=== PATIENT | female | born 1970 | race Caucasian/White ===

== ENCOUNTER 2021-04-10 06:52 | Outpatient (CLI) | payer BC ==
[~2021-04-10] VITALS: Ht 167.6 cm; Wt 68.2 kg
[2021-04-10] VITALS (11 sets, daily range): BP systolic 92–110; BP diastolic 55–78
[2021-04-10] MEDS ORDERED: IODIXANOL 320 MG/ML 100 ML VIAL. ONE (07:35)
[2021-04-10 07:43] LABS: CALCIUM 8.4 mg/dL (8.5-10.1); CREATININE 0.7 mg/dL (0.6-1.0); GFR 88.2; HEMATOCRIT 40.5 % (36.0-47.0); HEMOGLOBIN 13.5 g/dL (12.0-15.5); POTASSIUM 3.7 mmol/L (3.5-5.1); RED BLOOD COUNT 4.66 x10^6/uL (3.50-5.40); RED CELL DISTRIBUTION WIDTH 14.1 % (11.5-14.5); WHITE BLOOD COUNT 6.3 x10^3/uL (4.0-11.0)
[2021-04-10] MEDS ORDERED: NAPR-514 PO (08:22)
[2021-04-10] MEDS ORDERED: LIDOCAINE 1% PF 2 ML VIAL. ONE (08:29)
[2021-04-10] MEDS ORDERED: HEPARIN for IV BOLUS 10,000 UNIT/10 ML VIAL. ONE (08:30)
[2021-04-10] MEDS ORDERED: VERAPAMIL 5 MG/2 ML VIAL. ONE (08:30)
[2021-04-10] MEDS ORDERED: fentaNYL PF VIAL 100 MCG/2 ML VIAL ONE (08:30)
[2021-04-10] MEDS ORDERED: MIDAZOLAM HCL/PF 2 MG/2 ML VIAL. ONE ×2 (08:30→08:54)
[2021-04-10] MEDS ORDERED: NITROGLYCERIN 200 MCG/2 ML SYRINGE FOR CATH/VASC LAB. ONE (08:30)
[2021-04-10] MEDS ORDERED: LIDOCAINE 1% PF 2 ML VIAL. INJ ONE (09:00)
[2021-04-10] MEDS ORDERED: VERAPAMIL 5 MG/2 ML VIAL. IART ONE (09:00)
[2021-04-10] MEDS ORDERED: HEPARIN for IV BOLUS 10,000 UNIT/10 ML VIAL. IART ONE (09:00)
[2021-04-10] MEDS ORDERED: MIDAZOLAM HCL/PF 2 MG/2 ML VIAL. IV ONE (09:00)
[2021-04-10] MEDS ORDERED: NITROGLYCERIN 200 MCG/2 ML SYRINGE FOR CATH/VASC LAB. IART ONE (09:00)
[2021-04-10] MEDS ORDERED: fentaNYL PF VIAL 100 MCG/2 ML VIAL IV ONE (09:00)
[2021-04-10] MEDS ORDERED: IODIXANOL 320 MG/ML 100 ML VIAL. IART ONE (09:15)
--- NOTE | 2021-04-10 09:15 | PDOC ---
MODERATE SEDATION ASSESSMENT RISKS/ALTERNATIVES Risks/Alternatives Risks and alternatives of this type of sedation and procedure discussed with: RISK/ALTERNATIVES: Patient H & P ON CHART H & P H & P on chart and reviewed for co-morbid conditions and appropriate labs. H&P ON CHART: Yes STATUS PREG STATUS ASSESSED: No MEDS/ALLERGIES REVIEWED Meds/Allergies Reviewed Medications and Allergies including time and route of recently administered narcotics and sedatives. MEDS/ALLERGIES REVIEWED: Yes ASA RATING ASA RATING: II AIRWAY ASSESSMENT Airway Assessment Airway patency, oral function limitations, presence of caps, crowns, dentures, partials, and ability to extend neck assessed. AIRWAY ASSESSMENT: Yes MALLAMPATI SCORE MALLAMPATI SCORE: II PRE-SEDATION ASSESSMENT PRE-SEDATION ASSESSMENT: Yes ANDREA SEGOVIA MD Apr 10, 2021 09:15
--- NOTE | 2021-04-10 09:21 | CARD ---
MR#: [id number] Date of Study: 04/10/2021 Ordering Physician: ANDREA SEGOVIA, Referring Physician: ANDREA SEGOVIA Tech: Elaine Lester RT(R) APPROVED REPORT Patient StatusOUT-PATIENT Sr. Pricing Analyst: Elaine Lester RT(R) Procedure(s) performed: Aortogram with bilateral lower extremity runoff via right transradial approac h MODERATE SEDATION TIME: 21 MINUTES FLUORO TIME: 3.6 MIN DOSE: 23.2 GYCM2 CONTRAST: 64CC VISI INDICATION FOR PROCEDURE The indication(s) include : Leg pain and abnormal arterial duplex scan that suggested significant per ipheral artery stenosis. CASE TECHNIQUE After explaining the risks, benefits, and alternative options, informed consent was obtained from the patient. IV conscious sedation was used throughout procedure with appropriate monitoring and was per formed in the presence of a registered nurse who was an independent trained observer other than the adore romo performing the procedure. During this case, Fluoroscopy and low osmolar contrast were used f or imaging. Specimen(s) Removed: N/A Estimated Blood loss: 10 cc's. PROCEDURE NARRATIVE After explaining the risk, benefits and alternative options, informed consent was obtained from patibob nt. Patient was brought to the cardiac Purchasing Administrative Assistant and her right wrist was prepped and draped in the us ual fashion after confirming a positive modified Janes's test. Arterial access was obtained in the r ight radial artery and 6 [place] sheath was inserted. 4 [place] R2P PVI multicurve catheter was then a dvanced under fluoroscopy guidance and with the tip position in the descending aorta, aorto iliac ang iography was performed. The catheter was then advanced into the left external iliac artery and selec tive left lower extremity angiography was performed. Catheter was retracted and then advanced into t he right external iliac artery and selective right lower extremity angiography was performed. Chelsey carr tolerated the procedure well. Hemostasis was achieved using TR band. There were no immediate comp lications. FINDINGS 1. No significant stenosis involving the distal descending aorta 2. No significant stenosis involving bilateral common and external iliac arteries 3. No significant stenosis involving bilateral common femoral arteries 4. No significant stenosis involving bilateral superficial femoral and deep femoral arteries 5. No significant stenosis involving popliteal arteries bilaterally with good three vessel runoff karthik th lower extremities Conclusion No significant peripheral artery stenosis Signed by : Andrea Segovia, Electronically Approved : 04/10/2021 09:21:31
--- NOTE | 2021-04-10 11:31 | NUR ---
Discharge Note: [facility] Discharge instructions and discharge home medications reviewed with Patient and a copy given. All questions have been answered and understanding verbalized. The following instructions and handouts were given: radial site care and adult moderate sedation Discontinued lines and drains: Peripheral IV intact. Patient discharged to Home or Self Care withFamily Membervia Wheelchair. Patient's son is coming from [place] to pick her up.
== END 2021-04-10 11:30 | disposition home or self-care (01) ==
LOC: CCL 06:52
PROVIDERS: ATTEND Internal Medicine Cardiovascular Disease
DX: I73.9 Peripheral vascular disease, unspecified (principal); F17.210 Nicotine dependence, cigarettes, uncomplicated; Z98.51 Tubal ligation status; Z98.890 Other specified postprocedural states; Z79.899 Other long term (current) drug therapy; Z88.0 Allergy status to penicillin
CPT/HCPCS: 36245; 36415; 75625; 75716; 80048; 85027; 99152; C1769; C1887; C1894; J1644; J2250; J3010; J3490; Q9967; 99153